=== PATIENT | female | born 1990 | race African-American/Black ===

== ENCOUNTER 2018-04-23 13:17 | Emergency (ER) | payer MEDICAID ==
[~2018-04-23] VITALS: Ht 160 cm; Wt 68.0 kg
[2018-04-23 13:24] VITALS: BP 115/61; Ht 160 cm; Wt 68.0 kg
== END 2018-04-23 15:06 | disposition home or self-care (01) ==
LOC: ED 13:17
DX: M25.561 Pain in right knee (principal); S16.1XXA Strain of muscle, fascia and tendon at neck level, initial encounter; V43.52XA Car driver injured in collision with other type car in traffic accident, initial encounter; Y93.I9 Activity, other involving external motion; Y92.488 Other paved roadways as the place of occurrence of the external cause; Y99.8 Other external cause status
CPT/HCPCS: J1885

== ENCOUNTER 2019-03-23 23:13 | Emergency (ER) | payer MEDICAID ==
[~2019-03-23] VITALS: Ht 165.1 cm; Wt 74.0 kg
[2019-03-23 23:23] VITALS: Ht 165.1 cm; Wt 74.0 kg
[2019-03-24 00:58] VITALS: BP 109/67
== END 2019-03-24 00:58 | disposition home or self-care (01) ==
LOC: ED 23:13
DX: S81.832A Puncture wound without foreign body, left lower leg, initial encounter (principal); W54.0XXA Bitten by dog, initial encounter; Y93.89 Activity, other specified; Y92.481 Parking lot as the place of occurrence of the external cause; Y99.8 Other external cause status
CPT/HCPCS: 90715

== ENCOUNTER 2019-07-28 15:04 | Emergency (ER) | payer MEDICAID ==
[~2019-07-28] VITALS: Ht 165.1 cm; Wt 69.4 kg
[2019-07-28 15:14] VITALS: Ht 165.1 cm; Wt 69.4 kg
[2019-07-28 15:40] LABS: BASOPHIL % 0.2 % (0-2); PLATELET COUNT 233 x10^3mcL (130-400); RED CELL DISTRIBUTION WIDTH 13.6 % (11.5-14.5)
[2019-07-28 16:33] LABS: UA SPECIFIC GRAVITY >=1.030 (1.005-1.035); microscopic required? YES; urine erythrocyte NEGATIVE (NEGATIVE)
[2019-07-28 17:40] VITALS: BP 124/80
== END 2019-07-28 17:40 | disposition home or self-care (01) ==
LOC: ED 15:04
PROVIDERS: Emergency Medicine
DX: O20.0 Threatened abortion (principal); Z3A.08 8 weeks gestation of pregnancy
CPT/HCPCS: 36415